=== PATIENT | female | born 1995 | race Caucasian/White ===

== ENCOUNTER 2019-11-11 03:57 | Emergency (ER) | payer OTHER ==
[~2019-11-11] VITALS: Ht 175.3 cm; Wt 68.0 kg
[2019-11-11 04:03] VITALS: BP 128/65
--- NOTE | 2019-11-11 04:03 | NUR ---
TO BED # 03 AMBULATORY
--- NOTE | 2019-11-11 04:08 | NUR ---
AMBULATED TO ER BED 3
--- NOTE | 2019-11-11 04:16 | NUR ---
24 Y/O FEMALE C/O MARTI X 2 DAYS AND LOWER BACK PAIN X 3DAYS. RATES PAIN 8/10 AND DESCRIBES IT THROBBING PRESSURE ON THE TEMPORAL AND FRONTAL REGION OF THE HEAD. PT DENIES ANY HEAD TRUAMA OR INJURY AND DENIES ANY FALLS OR INJURY TO LOWER BACK. PT ALSO STATES SHE HAS LIGHT SENSATIVITY, BLURRY VISION, STEADY GAIT. 4MM BRISK PERRLA. CHANGE OF APPETITE NOTED. VOMITED 1 X. DENIES FEVER,D,N. PT TOOK TYLENOL 2HR AGO WITH NO RELIEF. PT DENIES ANY DYSURIA OR BLOOD IN THE URINE. NKA. PMH: SCIATICA, IBS, ASTHMA.
[2019-11-11] MEDS ORDERED: PROCHLORPERAZINE 10 MG/2 ML VIAL IM ONE (04:45)
[2019-11-11] MEDS ORDERED: KETOROLAC 30 MG/ML VIAL IM ONE (04:45)
[2019-11-11] MEDS ORDERED: diphenhydrAMINE 50 MG/ML VIAL IM ONE (04:45)
[2019-11-11 06:27] VITALS: BP 128/65
--- NOTE | 2019-11-11 06:27 | NUR ---
Patient discharged with v/s stable. Written and verbal after care instructions given and explained. Patient alert, oriented and verbalized understanding of instructions. Ambulatory with steady gait. All questions addressed prior to discharge. ID band removed. Patient advised to follow up with PMD. Rx of ZOFRAN AND TRAMADOL given. Patient educated on indication of medication including possible reaction and side effects. Opportunity to ask questions provided and answered.
== END 2019-11-11 06:27 | disposition home or self-care (01) ==
LOC: MED 03:57
DX: R51 Headache (principal); M54.41 Lumbago with sciatica, right side; G89.29 Other chronic pain; R03.0 Elevated blood-pressure reading, without diagnosis of hypertension; J45.909 Unspecified asthma, uncomplicated
CPT/HCPCS: 96372; 99283; J0780; J1200; J1885